=== PATIENT | male | born 1965 | race Caucasian/White ===

== ENCOUNTER 2020-03-28 17:15 | Inpatient (IN) | payer OTHER, SELFPAY ==
[2020-03-28] VITALS (14 sets, daily range): BP systolic 129–152; BP diastolic 86–100; PULSE 109–132; RESP 13–30; TEMP 36.1–36.9; O2SAT 93–97; BMI 30.5
--- NOTE | 2020-03-28 17:34 | ED_ITS ---
HPI - SOB/Dyspnea General Chief Complaint: Shortness of Breath/Dyspnea Stated Complaint: states Covid +, not getting better Time Seen by Provider: 03/28/20 17:22 Source: patient Mode of arrival: Ambulatory Limitations: no limitations History of Present Illness HPI Narrative: 54-year-old male former smoker with a history of hypertension and high cholesterol presents with worsening symptoms and the setting of a known positive COVID swab. Patient started getting sick about a week ago and had an evaluation at the [facility] on Thursday. He had a COVID swab which was positive and he has been at home and self quarantine ever since. He has increasing work of breathing and has been watering his pulse ox at home and noted to be 92-93%. Minimal exertion makes him extremely short of breath. He is admittedly a bit confused and fatigued. He denies any hemoptysis. He has had a dry hacking cough and feels fatigued. He denies runny nose but has had some nasal congestion and mild sore throat. He feels a bit achy and generally unwell. He denies nausea, vomiting or diarrhea. MD Complaint: shortness of breath and cough Onset (ago): day(s) Context: recent illness Severity: moderate Consistency/Duration: constant Relieving factors: rest Exacerbating factors: exertion Associated symptoms: fever and cough Related Data Home oxygen amount: none Home Medications Medication Instructions Recorded Confirmed lisinopril 10 mg PO DAILY 03/28/20 03/28/20 rizatriptan 10 mg PO PRN PRN 03/28/20 03/28/20 tamsulosin [Flomax] 0.4 mg PO BEDTIME 03/28/20 03/28/20 atorvastatin [Lipitor] 20 mg PO DAILY 03/29/20 03/29/20 metoprolol tartrate 25 mg PO DAILY 03/29/20 03/29/20 Allergies Allergy/AdvReac Type Severity Reaction Status Date / Time ibuprofen Allergy Rash Verified 03/28/20 17:23 Review of Systems Constitutional Constitutional: Denies chills, Reports fatigue, Reports fever(s), Denies frequent falls, Denies lethargy and Reports weakness Eyes Eyes: Denies change in vision, Denies eye discharge, Denies irritation and Denies loss of vision ENT Ears, Nose, Mouth, and Throat: Denies change in voice, Denies dizziness, Denies neck pain, Denies sore throat and Denies throat swelling Cardiovascular Cardiovascular: Denies chest pain, Denies irregular heart rhythm, Denies lightheadedness, Reports palpitations, Reports dyspnea, Reports dyspnea on exertion and Denies orthopnea Respiratory Respiratory: Reports cough, Reports dyspnea, Reports dyspnea on exertion and Denies wheezing Gastrointestinal Gastrointestinal: Denies abdominal pain, Denies change in bowel habits, Denies diarrhea, Denies nausea and Denies vomiting Musculoskeletal Musculoskeletal: Denies neck pain and Denies numbness Integumentary/Breasts Skin/Breast: Denies pruritus, Denies erythema, Denies rash and Denies wounds Neurologic Neurologic: Denies behavioral changes, Denies confusion, Denies dizziness, Denies frequent falls, Denies loss of vision, Denies numbness and Reports weakness Psychiatric Psychiatric: Denies anxiety, Denies behavioral changes, Denies confusion, Denies depression, Denies homicidal ideation and Denies suicidal ideation Endocrine Endocrine: Reports fatigue, Denies flushing and Reports palpitations Hematologic/Lymphatic Hematologic/Lymphatic: Denies easy bruising Allergic/Immunologic Allergic/Immunologic: Denies urticaria, Denies throat swelling and Denies wheezing Patient History Medical History (Updated 03/28/20 @ 18:38 by Agusto Connors DO) BPH (benign prostatic hyperplasia) (Acute) High cholesterol (Acute) Hypertension (Acute) Surgical History (Updated 03/28/20 @ 21:05 by Kevin Leong MD) H/O lithotripsy (Acute) H/O umbilical hernia repair (Acute) Family History (Updated 03/28/20 @ 21:07 by Kevin Leong MD) Mother Lung disease Father CVA (cerebral vascular accident) Son COVID-19 Social History household members: spouse Smoking Status: Former smoker Smoking Status: Former smoker alcohol intake frequency: 0-2 drinks per day Substance Use Type: former substance user Exam Narrative Exam Narrative: GENERAL: [54] year old patient appears stated age. Well- nourished, well-developed patient, in moderate distress, mildly diaphoretic, subtle confusion, obvious increased work of breathing. HEAD: Atraumatic. Normocephalic. EYES: Pupils equal round and reactive. Extraocular motions intact. No scleral icterus. No injection or drainage. ENT: Nose without bleeding, purulent drainage. Throat without erythema, tonsillar hypertrophy or exudate. Airway patent. NECK: Trachea midline. Non tender CARDIOVASCULAR: Tachycardic irregular rhythm without murmurs, gallops, or rubs. RESPIRATORY: Faint crackles in bilateral bases, rapid, shallow breathing GASTROINTESTINAL: Abdomen soft, non-tender, nondistended. EXTREMITIES: No edema or joint tenderness. BACK: Nontender without deformity or crepitance. No flank tenderness. NEURO: AOx3. SKIN: No rash or erythema of visible areas Initial Vital Signs Initial Vital Signs: Vital Signs Temperature 96.9 F L 03/28/20 17:21 Pulse Rate 132 H 03/28/20 17:21 Respiratory Rate 24 03/28/20 17:21 Blood Pressure 132/100 H 03/28/20 17:21 Pulse Oximetry 96 03/28/20 17:21 Scores GCS La coma scale eye opening: Spontaneous [place] coma scale verbal response: Confused [place] coma scale motor response: Obey commands [place] coma scale total score: 14 Course Orders Ordered: Discontinued Medications Acetaminophen (Tylenol) 650 mg PO Q4HR PRN PRN Reason: Fever/Mild Pain (1-3) Last Admin: 03/29/20 00:46 Dose: 650 mg Documented by: LARY Amlodipine Besylate (Norvasc) 5 mg PO DAILY [facility] Last Admin: 03/29/20 09:53 Dose: 5 mg Documented by: BO Atorvastatin Calcium (Lipitor) 10 mg PO BEDTIME [facility] Last Admin: 03/28/20 22:41 Dose: Not Given Documented by: MINDA Atorvastatin Calcium (Lipitor) 20 mg PO DAILY [facility] Last Admin: 03/30/20 09:26 Dose: 20 mg Documented by: BO Benzonatate (Tessalon Perles) 100 mg PO TID PRN PRN Reason: Cough Dexamethasone (Decadron) 6 mg IV NOW ONE Stop: 03/28/20 17:54 Last Admin: 03/28/20 18:14 Dose: 6 mg Documented by: NUNU Dexamethasone (Decadron) 6 mg PO DAILY [facility] Last Admin: 03/30/20 09:25 Dose: 6 mg Documented by: Admin: 03/29/20 09:53 Dose: 6 mg Documented by: BO Dextrose ([email or web address]) 25 gm IV PRN PRN; Protocol PRN Reason: Hypoglycemia Enoxaparin Sodium (Lovenox) 40 mg SUBCUT NOW ONE Stop: 03/28/20 18:53 Last Admin: 03/28/20 19:18 Dose: 40 mg Documented by: NUNU Enoxaparin Sodium (Lovenox) 40 mg SUBCUT DAILY [facility] Last Admin: 03/30/20 09:26 Dose: 40 mg Documented by: Admin: 03/29/20 13:59 Dose: 40 mg Documented by: BO Guaifenesin/Codeine Phosphate (Guaifenesin/Codeine Liquid) 10 ml PO Q6H PRN PRN Reason: Cough Sodium Chloride (Normal Saline 0.9%) 1,000 mls @ 125 mls/hr IV CONT [facility] Last Infusion: 03/29/20 09:42 Dose: 0 mls/hr Documented by: Admin: 03/29/20 00:47 Dose: 125 mls/hr Documented by: Infusion: 03/29/20 00:47 Dose: 125 mls/hr Documented by: Infusion: 03/28/20 19:56 Dose: 125 mls/hr Documented by: Admin: 03/28/20 17:40 Dose: 125 mls/hr Documented by: KAYLEE Azithromycin 500 mg/ Dextrose 250 mls @ 250 mls/hr IV NOW ONE Stop: 03/28/20 17:53 Last Infusion: 03/28/20 19:18 Dose: 0 mls/hr Documented by: Admin: 03/28/20 18:13 Dose: 250 mls/hr Documented by: NUNU Remdesivir 200 mg/ Sodium (Chloride) 250 mls @ 250 mls/hr IV NOW ONE Stop: 03/28/20 18:53 Last Infusion: 03/28/20 20:20 Dose: 0 mls/hr Documented by: Infusion: 03/28/20 19:56 Dose: 250 mls/hr Documented by: Admin: 03/28/20 19:18 Dose: 250 mls/hr Documented by: NUNU Remdesivir 100 mg/ Sodium (Chloride) 250 mls @ 250 mls/hr IV DAILY [facility] Stop: 04/02/20 09:01 Last Admin: 03/30/20 09:25 Dose: 250 mls/hr Documented by: Infusion: 03/29/20 14:48 Dose: 0 mls/hr Documented by: Admin: 03/29/20 09:53 Dose: 250 mls/hr Documented by: BO Insulin Aspart (Novolog Flexpen) 0 unit SUBCUT ACHS [facility]; Protocol Last Admin: 03/30/20 08:33 Dose: Not Given Documented by: Admin: 03/29/20 21:10 Dose: Not Given Documented by: Admin: 03/29/20 17:40 Dose: Not Given Documented by: MINDA Lisinopril (Zestril) 10 mg PO DAILY [facility] Last Admin: 03/30/20 08:46 Dose: Not Given Documented by: BO Lisinopril (Zestril) 10 mg PO NOW ONE Stop: 03/30/20 00:12 Last Admin: 03/30/20 00:45 Dose: 10 mg Documented by: MARTÍN Metoprolol Succinate (Toprol Xl) 25 mg PO DAILY [facility] Last Admin: 03/30/20 08:46 Dose: Not Given Documented by: BO Metoprolol Succinate (Toprol Xl) 25 mg PO NOW ONE Stop: 03/30/20 00:11 Last Admin: 03/30/20 00:44 Dose: 25 mg Documented by: MARTÍN Rizatriptan 10 Mg 10 mg PO PRN PRN PRN Reason: Migraine Headache Tamsulosin HCl (Flomax) 0.4 mg PO DAILY [facility] Last Admin: 03/29/20 09:53 Dose: 0.4 mg Documented by: BO Tamsulosin HCl (Flomax) 0.4 mg PO BEDTIME [facility] Tamsulosin HCl (Flomax) 0.4 mg PO BEDTIME [facility] Last Admin: 03/29/20 21:32 Dose: 0.4 mg Documented by: MINDA Reevaluation(s) Reevaluation #1: patient feels better with supplemental O2, staying in mid to upper 90s. HR down to 110s. Consultations Consultation #1: Hospitalist called Time: 18:39 Vital Signs Vital signs: Vital Signs - 8 hr 03/28/20 17:21 03/28/20 17:45 03/28/20 18:00 Temperature 96.9 F L Pulse Rate 132 H 126 H 126 H Respiratory Rate 24 Blood Pressure 132/100 H 144/98 H 148/95 H Pulse Oximetry 96 95 94 03/28/20 18:15 03/28/20 18:30 03/28/20 18:31 Temperature Pulse Rate 121 H 120 H 120 H Respiratory Rate 24 30 H 24 Blood Pressure 149/86 H 152/96 H Pulse Oximetry 93 96 97 MDM - SOB/Dyspnea Lab Data Result diagrams: 03/30/20 04:35 03/30/20 04:35 Labs: Lab Results 03/28/20 03/28/20 03/28/20 Range/Units 16:25 16:25 16:25 WBC 3.9 L (4.5-11.0) X10^3/uL RBC 5.93 H (4.5-5.9) X10^6/uL Hgb 17.6 H (13.5-17.5) g/dL Hct 51.3 (41-53) % MCV 86.5 (80-100) fL MCH 29.6 (26-34) PG MCHC 34.2 (30-36) % RDW 13.6 (11.6-14.8) % Plt Count 104 L (150-400) X10^3/uL Neut % (Auto) 63.8 (50-75) % Lymph % (Auto) 23.1 L (25-40) % [place] % (Auto) 12.6 (3-14) % Eos % (Auto) 0.1 L (2-4) % Baso % (Auto) 0.4 (0-2) % Neut # (Auto) 2500 (5155-5548) /uL Lymph # (Auto) 900 L (5454-7606) /uL [place] # (Auto) 500 (0-900) /uL Eos # (Auto) 0 (0-450) /uL Baso # (Auto) 0 (0-100) /uL Platelet Estimate Decreased on smear Plt Morphology Comment 1+ large platelets RBC Morphology Normal morphology D-Dimer 269 H (<230) ng/mL Sodium (137-145) mmol/L Potassium (3.4-5.1) mmol/L Chloride (98-107) mmol/L Carbon Dioxide (22-32) mmol/L BUN (9-20) mg/dL Creatinine (0.66-1.25) mg/dL Estimated GFR (>60) mL/min BUN/Creatinine Ratio (6-22) Glucose (70-100) mg/dL Lactate (0.7-2.1) mmol/L Calcium (8.4-10.2) mg/dL Ferritin (18-464) ng/mL Total Bilirubin (0.2-1.3) mg/dL AST (17-59) IU/L ALT (<50) IU/L Alkaline Phosphatase (38-126) U/L Lactate Dehydrogenase (313-618) U/L Total Creatine Kinase (55-170) U/L CK-MB (CK-2) CK-MB (CK-2) Rel Index Troponin I (0.01-0.034) ng/mL C-Reactive Protein (<1.0) mg/dL NT-Pro-B Natriuret Pep (<125) pg/mL Total Protein (6.3-8.2) g/dL Albumin (3.5-5.0) g/dL Globulin (1.7-4.1) g/dL Albumin/Globulin Ratio (1.0-2.8) Procalcitonin < 0.05 (<0.5) ng/mL 03/28/20 03/28/20 Range/Units 16:25 16:25 WBC (4.5-11.0) X10^3/uL RBC (4.5-5.9) X10^6/uL Hgb (13.5-17.5) g/dL Hct (41-53) % MCV (80-100) fL MCH (26-34) PG MCHC (30-36) % RDW (11.6-14.8) % Plt Count (150-400) X10^3/uL Neut % (Auto) (50-75) % Lymph % (Auto) (25-40) % [place] % (Auto) (3-14) % Eos % (Auto) (2-4) % Baso % (Auto) (0-2) % Neut # (Auto) (1057-0764) /uL Lymph # (Auto) (8555-7050) /uL [place] # (Auto) (0-900) /uL Eos # (Auto) (0-450) /uL Baso # (Auto) (0-100) /uL Platelet Estimate Plt Morphology Comment RBC Morphology D-Dimer (<230) ng/mL Sodium 133 L (137-145) mmol/L Potassium 4.5 (3.4-5.1) mmol/L Chloride 102 (98-107) mmol/L Carbon Dioxide 21 L (22-32) mmol/L BUN 20 (9-20) mg/dL Creatinine 1.03 (0.66-1.25) mg/dL Estimated GFR > 60.0 (>60) mL/min BUN/Creatinine Ratio 19.4 (6-22) Glucose 142 H (70-100) mg/dL Lactate 1.3 (0.7-2.1) mmol/L Calcium 8.8 (8.4-10.2) mg/dL Ferritin 469 H (18-464) ng/mL Total Bilirubin 0.7 (0.2-1.3) mg/dL AST 36 (17-59) IU/L ALT 36 (<50) IU/L Alkaline Phosphatase 86 (38-126) U/L Lactate Dehydrogenase 618 (313-618) U/L Total Creatine Kinase 69 (55-170) U/L CK-MB (CK-2) TNP CK-MB (CK-2) Rel Index TNP Troponin I < 0.012 (0.01-0.034) ng/mL C-Reactive Protein 3.2 H (<1.0) mg/dL NT-Pro-B Natriuret Pep 21 (<125) pg/mL Total Protein 7.5 (6.3-8.2) g/dL Albumin 4.3 (3.5-5.0) g/dL Globulin 3.2 (1.7-4.1) g/dL Albumin/Globulin Ratio 1.3 (1.0-2.8) Procalcitonin (<0.5) ng/mL MDM Narrative Medical decision making narrative: Patient with resting SpO2 dipping into the low 90s, minimal exertion causes significant SOB and work of breathing. Patient put on 2L of O2, very likely admit given progression of illness, abnormal vitals. Per RECOVERY trial and NIH recommendations Dexamethasone 6mg IV ordered. Discharge Plan Departure Patient Disposition: Admitted As Inpatient Clinical Impression: COVID-19 Discharge Date/Time: 03/28/20 20:21 Instructions: DI for COVID-19 (Suspected or Confirmed ), Coronavirus Disease 2019 Admit Date/Time: 03/28/20 18:54 Admit Provider: Nara Lehman
--- NOTE | 2020-03-28 17:35 | DI.RAD.S_ITS ---
PROCEDURE: XR CHEST 1V INDICATIONS: worsening shortness of breath, known COVID+ TECHNIQUE: One view of the chest was acquired. COMPARISON: None. FINDINGS: Surgical changes and devices: None. Lungs and pleura: Bilateral patchy interstitial type infiltrates are seen. No pleural effusions or pneumothorax. Mediastinum: The cardiac contours are within normal limits. The aorta demonstrates calcification and tortuosity. Bones and chest wall: No suspicious bony lesions. Age-appropriate bony degenerative changes are seen. Overlying soft tissues appear unremarkable. IMPRESSION: Bilateral patchy interstitial type infiltrates are seen, which are consistent with the given clinical history of coping the moaning. Dictated by: Mathew Greco M.D. on 03/28/2020 at 17:32 Approved by: Mathew Greco M.D. on 03/28/2020 at 17:32
[2020-03-28] MEDS: SODIUM CHLORIDE 0.9% 1,000 ML 125 ML IV (17:40)
[2020-03-28 18:03] LABS: Basophils Absolute Auto 0 /uL (0-100); Basophils Percent Auto 0.4 % (0-2); Eosinophils Absolute Auto 0 /uL (0-450); Eosinophils Percent Auto 0.1 % (2-4); Hematocrit 51.3 % (41-53); Hemoglobin 17.6 g/dL (13.5-17.5); Lymphocytes Absolute Auto 900 /uL (1100-4500); Lymphocytes Percent Auto 23.1 % (25-40); Mean Corpuscular HGB Conc 34.2 % (30-36); Mean Corpuscular Hemoglobin 29.6 PG (26-34); Mean Corpuscular Volume 86.5 fL (80-100); Monocytes Absolute Auto 500 /uL (0-900); Monocytes Percent Auto 12.6 % (3-14); Neutrophils Absolute Auto 2500 /uL (1500-7000); Neutrophils Percent Auto 63.8 % (50-75); Red Blood Cell Count 5.93 X10^6/uL (4.5-5.9); Red Cell Distribution Width 13.6 % (11.6-14.8); White Blood Cell Count 3.9 X10^3/uL (4.5-11.0)
[2020-03-28 18:08] LABS: D Dimer 269 ng/mL (<230)
[2020-03-28 18:09] LABS: Lactate (Lactic Acid) 1.3 mmol/L (0.7-2.1)
[2020-03-28 18:11] LABS: Alanine Aminotransferase 36 IU/L (<50); Albumin 4.3 g/dL (3.5-5.0); Albumin Globulin Ratio 1.3 (1.0-2.8); Alkaline Phosphatase 86 U/L (38-126); Aspartate Aminotransferase 36 IU/L (17-59); BUN Creatinine Ratio 19.4 (6-22); Bilirubin Total 0.7 mg/dL (0.2-1.3); Blood Urea Nitrogen 20 mg/dL (9-20); C-Reactive Protein Quant 3.2 mg/dL (<1.0); Calcium 8.8 mg/dL (8.4-10.2); Carbon Dioxide 21 mmol/L (22-32); Chloride 102 mmol/L (98-107); Creatine Kinase 69 U/L (55-170); Estimated Glomerular Filt Rate > 60.0 mL/min (>60); Globulin 3.2 g/dL (1.7-4.1); Glucose 142 mg/dL (70-100); HEMOLYSIS 16 (0-50); Lactate Dehydrogenase 618 U/L (313-618); Potassium 4.5 mmol/L (3.4-5.1); Sodium 133 mmol/L (137-145); Total Protein 7.5 g/dL (6.3-8.2)
[2020-03-28] MEDS: AZITHROMYCIN 500 MG in DEXTROSE 5% IN WATER 250 ML IV (18:13)
[2020-03-28] MEDS: DEXAMETHASONE 10 MG/ML VIAL 6 MG IV (18:14)
[2020-03-28 18:16] LABS: Add Manual Diff / Slide Review SLIDE REVIEW; Platelet Count 104 X10^3/uL (150-400)
[2020-03-28 18:17] LABS: Platelet Estimate Decreased on smear; Platelet Morphology Comment 1+ LARGE PLATELETS; RBC Morphology Normal Morphology
[2020-03-28 18:21] LABS: NT-proBNP (BNP-Adult 18+) 21 pg/mL (<125); Troponin I < 0.012 ng/mL (0.01-0.034)
--- NOTE | 2020-03-28 18:29 | PC.NURSE ---
Pt 93% and placed on 2L O2 NC per MD order with improvement to 97%
--- NOTE | 2020-03-28 18:32 | PC.NURSE ---
+COVID after attending a birthday libertarian about 10-12 days ago. Reports cough, nonproductive, Reports dyspnea, Reports dyspnea on exertion and Denies wheezing. 93% RA. states SPO2 monitor at home reading 88%. placed on 2L NC with improvement to 97%. Lungs clear anteriorly. diaphoretic. afebrile. AAOx3. HR 120 consistently BP 152/96.
[2020-03-28 18:35] LABS: Procalcitonin < 0.05 ng/mL (<0.5)
[2020-03-28 18:44] LABS: Ferritin 469 ng/mL (18-464)
[2020-03-28] MEDS: REMDESIVIR 200 MG in SODIUM CHLORIDE 0.9% 210 ML 250 ML IV (19:18)
[2020-03-28] MEDS: ENOXAPARIN 40 MG/0.4 ML SYRINGE SUBCUT (19:18)
--- NOTE | 2020-03-28 20:51 | PC.NURSE ---
Pt arrived via gurney, A/Ox3, ambulated to bed with no difficulty. Currently on 2lNC, with NS infusing at 125mL/hr and Desivir infusing @250 mL/hr per order. Connected to monitoring equipment, oriented to room and call light system, admission assessment completed, orders reviewed. Bed low and locked, call light within reach, will continue to monitor.
--- NOTE | 2020-03-28 21:00 | P.HP_ITS ---
History of Present Illness History of Present Illness Date Patient Seen: 03/28/20 Time Patient Seen: 21:00 Chief complaint: states Covid +, not getting better Narrative: This is a 54-year-old male who was diagnosed with a COVID respiratory infection 10 days ago. His test was done in [place], he lives in [place], but is currently staying in an RV at the [facility], quarantining with his . He suspects that his son was the 1st person in the family to get the COVID. Over the last 24 hours he has become increasingly short of breath and when he presented to the emergency department he was 91% on room air. With application of 2 L nasal cannula he felt much better with his tachypnea dropping from the 30s into the 20s and his O2 sat rising into the mid 90s to high 90s. He has received an initial dose of remdesivir and dexamethasone in the emergency department, with further doses depending on his progress. During my visit he is coughing intermittently. He is not febrile. His chest x-ray shows the classic bilateral patchy interstitial type infiltrates of coronavirus. His white blood count is 3.9 with a hemoglobin of 17.6, LDH of 618, COPD a 33.2, D-dimer 269, platelets of 104, glucose 142 and ferritin of 469. Patient History Medical History (Updated 03/28/20 @ 18:38 by Agusto Connors DO) BPH (benign prostatic hyperplasia) (Acute) High cholesterol (Acute) Hypertension (Acute) Surgical History (Updated 03/28/20 @ 21:05 by Kevin Leong MD) H/O lithotripsy (Acute) H/O umbilical hernia repair (Acute) Family & Social History Family History (Updated 03/28/20 @ 21:07 by Kevin Leong MD) Mother Lung disease Father CVA (cerebral vascular accident) Son COVID-19 Social History: household members spouse Prior Living Arrangements RV Safety & Behavioral: Feels Safe in Current Yes Environment Been Physically Hurt or No Threatened By a Person Suicidal Ideation Description None Suicide Plan Description No Plan Tobacco & Substance use: Smoking Status Former smoker alcohol intake frequency 0-2 drinks per day Substance Use Type former substance user Comment: His backup decision maker is his Maryjane Kruse. His primary care physician is Dr. Indira Hayden. Meds Home Medications and Allergies Home Medications Medication Instructions Recorded Confirmed Type lisinopril 10 mg PO DAILY 03/28/20 03/28/20 History rizatriptan 10 mg PO PRN PRN 03/28/20 03/28/20 History tamsulosin [Flomax] 0.4 mg PO BEDTIME 03/28/20 03/28/20 History Allergies Allergy/AdvReac Type Severity Reaction Status Date / Time ibuprofen Allergy Rash Verified 03/28/20 17:23 Review of Systems Review of Systems Narrative: Positive for shortness of breath, coughing, muscle aches. Negative for chest pain, fevers, chills, sweats, headaches, abdominal pain, nausea, vomiting, bleeding, rash, diarrhea, joint pain, seizures, headaches, new allergies, difficulty swallowing. ROS: Yes All systems reviewed with the patient and are negative except as otherwise documented Exam Vital Signs (past 8 hours): - 03/28/20 17:21 03/28/20 17:45 03/28/20 18:00 Temperature 96.9 F L Pulse Rate 132 H 126 H 126 H Respiratory Rate 24 Blood Pressure 132/100 H 144/98 H 148/95 H Pulse Oximetry 96 95 94 03/28/20 18:15 03/28/20 18:30 03/28/20 18:31 Temperature Pulse Rate 121 H 120 H 120 H Respiratory Rate 24 30 H 24 Blood Pressure 149/86 H 152/96 H Pulse Oximetry 93 96 97 03/28/20 18:45 03/28/20 18:46 03/28/20 19:00 Temperature Pulse Rate 121 H 119 H 114 H Respiratory Rate 23 Blood Pressure 129/86 129/89 Pulse Oximetry 95 97 96 03/28/20 19:15 03/28/20 19:30 03/28/20 19:31 Temperature Pulse Rate 111 H 110 H 111 H Respiratory Rate 28 H 17 25 H Blood Pressure 133/91 H 147/98 H Pulse Oximetry 96 96 97 03/28/20 19:45 03/28/20 20:00 Temperature 98.5 F Pulse Rate 109 H 109 H Respiratory Rate 22 13 Blood Pressure 141/93 H 149/93 H Pulse Oximetry 96 96 Oxygen Delivery Method Room Air Narrative Exam Narrative: He is alert and oriented x3. At the moment he is not in any respiratory distress, calmly breathing his nasal cannula oxygen and occasionally coughing, only when provoked by deep breathing. Pupils are equally round and reactive to light and accommodation. Extraocular muscles are intact. Sclerae are pink and nonicteric Throat looks normal No lymph nodes are felt head, neck, supraclavicular area There is no thyromegaly JVD is less than 6 cm No carotid bruits are heard Heart is regular rate and rhythm without murmur Lungs coarse crackling bilaterally Abdomen is soft, bowel sounds positive, nontender, no organomegaly. Extremities have no ankle edema. Neurological exam. Cranial nerves 2-12 test intact. There is no tremor. Gait and balance are not tested. Skin has no rash or jaundice. Objective Labs Result Diagrams: 03/28/20 16:25 03/28/20 16:25 Labs: Laboratory Results - last 24 hr 03/28/20 03/28/20 03/28/20 16:25 16:25 16:25 WBC 3.9 L RBC 5.93 H Hgb 17.6 H Hct 51.3 MCV 86.5 MCH 29.6 MCHC 34.2 RDW 13.6 Plt Count 104 L Neut % (Auto) 63.8 Lymph % (Auto) 23.1 L [place] % (Auto) 12.6 Eos % (Auto) 0.1 L Baso % (Auto) 0.4 Neut # (Auto) 2500 Lymph # (Auto) 900 L [place] # (Auto) 500 Eos # (Auto) 0 Baso # (Auto) 0 Platelet Estimate Decreased on smear Plt Morphology Comment 1+ large platelets RBC Morphology Normal morphology D-Dimer 269 H Sodium Potassium Chloride Carbon Dioxide BUN Creatinine Estimated GFR BUN/Creatinine Ratio Glucose Lactate Calcium Ferritin Total Bilirubin AST ALT Alkaline Phosphatase Lactate Dehydrogenase Total Creatine Kinase CK-MB (CK-2) CK-MB (CK-2) Rel Index Troponin I C-Reactive Protein NT-Pro-B Natriuret Pep Total Protein Albumin Globulin Albumin/Globulin Ratio Procalcitonin < 0.05 03/28/20 03/28/20 16:25 16:25 WBC RBC Hgb Hct MCV MCH MCHC RDW Plt Count Neut % (Auto) Lymph % (Auto) [place] % (Auto) Eos % (Auto) Baso % (Auto) Neut # (Auto) Lymph # (Auto) [place] # (Auto) Eos # (Auto) Baso # (Auto) Platelet Estimate Plt Morphology Comment RBC Morphology D-Dimer Sodium 133 L Potassium 4.5 Chloride 102 Carbon Dioxide 21 L BUN 20 Creatinine 1.03 Estimated GFR > 60.0 BUN/Creatinine Ratio 19.4 Glucose 142 H Lactate 1.3 Calcium 8.8 Ferritin 469 H Total Bilirubin 0.7 AST 36 ALT 36 Alkaline Phosphatase 86 Lactate Dehydrogenase 618 Total Creatine Kinase 69 CK-MB (CK-2) TNP CK-MB (CK-2) Rel Index TNP Troponin I < 0.012 C-Reactive Protein 3.2 H NT-Pro-B Natriuret Pep 21 Total Protein 7.5 Albumin 4.3 Globulin 3.2 Albumin/Globulin Ratio 1.3 Procalcitonin Assessment & Plan Assessment & Plan narrative: COVID - 19 -CXR infiltrates, tachypnea, mild hypoxia are c/w known +COVID status -WBC 3.9, Platelets 104, Repeat on 03/29 -Initial doses of Remdesivir and Dexamethasone given in the ED based on decision to place on supplemental oxygen for work of breathing/hyperventilation. -Further doses to be determined on 03/29. He does not technically qualify under NIH guidelines due to presenting room air saturation of 91%. If decision made to continue treatment the current recommendation is remdesivir 100 mg daily for 4 more days or until hospital discharge, whichever comes 1st and dexamethasone 6 mg IV or p.o. for up to 10 days or until hospital discharge, whichever comes 1st. -He feels much better with oxygen by NC, higher O2 sats and the Dexamethasone ef fect. Hyperglycemia -Blood Glucose of 142 on admission -Now on Dexamethasone -Repeat BMP on 03/29 Hypertension, present on admission. Chronic -Holding Lisinopril BPH, present on admission. Chronic -Continue Flomax Hyperlipidemia, present on admission. Chronic -Continue statin therapy. Begin with Atorvastatin. -He does not remember which statin he takes. COVID-19 COVID-19 status: Positive Result date/Date tested (Pos, Neg/Pending): 03/18/20
[2020-03-28 21:02] LABS: Adenovirus Not Detected (Not Detect); Bordetella pertussis Not Detected (Not Detect); Chlamydophila pneumoniae Not Detected (Not Detect); Coronavirus 229E Not Detected (Not Detect); Coronavirus HKU1 Not Detected (Not Detect); Coronavirus NL 63 Not Detected (Not Detect); Coronavirus OC43 Not Detected (Not Detect); Human Metapneumovirus Not Detected (Not Detect); Human Rhinovirus/Enterovirus Not Detected (Not Detect); Influenza A Not Detected (Not Detect); Influenza B Not Detected (Not Detect); Mycoplasma pneumoniae Not Detected (Not Detect); Parainfluenza Virus 1 Not Detected (Not Detect); Parainfluenza Virus 2 Not Detected (Not Detect); Parainfluenza Virus 3 Not Detected (Not Detect); Parainfluenza Virus 4 Not Detected (Not Detect); Respiratory Syncytial Virus Not Detected (Not Detect)
[2020-03-29] MEDS: ACETAMINOPHEN 325 MG TABLET 650 MG PO (00:46)
[2020-03-29] MEDS: SODIUM CHLORIDE 0.9% 1,000 ML 125 ML IV (00:47)
[2020-03-29 01:00] VITALS: BP 148/103; PULSE 102; RESP 22; TEMP 37.2; O2SAT 96
[2020-03-29 04:58] LABS: Add Manual Diff / Slide Review NO; Basophils Absolute Auto 0 /uL (0-100); Basophils Percent Auto 0.3 % (0-2); Eosinophils Absolute Auto 0 /uL (0-450); Hematocrit 48.1 % (41-53); Lymphocytes Absolute Auto 600 /uL (1100-4500); Lymphocytes Percent Auto 30.7 % (25-40); Mean Corpuscular HGB Conc 33.2 % (30-36); Mean Corpuscular Volume 87.2 fL (80-100); Monocytes Absolute Auto 200 /uL (0-900); Monocytes Percent Auto 10.5 % (3-14); Neutrophils Absolute Auto 1200 /uL (1500-7000); Neutrophils Percent Auto 58.5 % (50-75); Platelet Count 98 X10^3/uL (150-400); Red Blood Cell Count 5.51 X10^6/uL (4.5-5.9); Red Cell Distribution Width 13.5 % (11.6-14.8)
[2020-03-29 05:20] LABS: BUN Creatinine Ratio 20.6 (6-22); Blood Urea Nitrogen 20 mg/dL (9-20); Carbon Dioxide 27 mmol/L (22-32); Chloride 104 mmol/L (98-107); Estimated Glomerular Filt Rate > 60.0 mL/min (>60); Glucose 190 mg/dL (70-100); HEMOLYSIS 19 (0-50); Sodium 137 mmol/L (137-145)
[2020-03-29 06:02] VITALS: BP 141/94; PULSE 75; RESP 20; TEMP 36.7; O2SAT 94
--- NOTE | 2020-03-29 06:33 | PC.NURSE ---
Gag Writer Note-Patient is A/Ox4, independent in room with minimal shortness of breath, SpO2 92-96%, wears 2L NC while in bed, RR 20s, LS diminished with underlying coarseness, intermittent dry cough. T-max 99.0 at 0100, Tylenol given for headache, Temp 98.0 in am. No diarrhea reported overnight. Remains in Airborne/Contact Isolation.
[2020-03-29 08:00] VITALS: BP 146/97; PULSE 91; RESP 20; TEMP 36.7; O2SAT 96
[2020-03-29] MEDS: AMLODIPINE 5 MG TABLET PO (09:53)
[2020-03-29] MEDS: REMDESIVIR 100 MG in SODIUM CHLORIDE 0.9% 230 ML 250 ML IV (09:53)
[2020-03-29] MEDS: dexAMETHasone 1 MG TABLET 6 MG PO (09:53)
[2020-03-29] MEDS: TAMSULOSIN 0.4 MG CAPSULE PO ×2 (09:53→21:32)
--- NOTE | 2020-03-29 10:29 | CM.IDA ---
Initial DCP Assessment Note Patient is a 54 yo male, resident of [place]. Patient presents w/worsening symptoms related to COVID-19 PCP: Loly escudero, PCP not listed Payer: Robert ANDREW Reviewed chart. This CASEWORKER INTAKE will remain out of patient's room today, can place call as needed if DC needs or concerns arise. According to Dr Lehman, full resp panel pending. Patient is expected to recover here and DC back to RV w/spouse. Patient is indp and active at baseline and expected to not have any needs from this CASEWORKER INTAKE Will follow closely in case DC needs or concerns arise. SELENA Discharge Planning/Care Management CM Discharge Assessment Start: 03/29/20 10:26 Freq: Status: Active Protocol: Document 03/29/20 10:26 SELENA (Rec: 03/29/20 10:29 SELENA [id number]) Discharge Planning Assessment Assigned Linseed Cake Trimmer DESI Philippe DPOA/Assigned Designee Name Maryjane Kruse, spouse Contact Information [phone] Advance Directives? No History Provided By Medical Record Prior Living Arrangements RV Household Members spouse Type of transporation used prior to Drives own vehicle admit Independent with ADL's Yes Is patient alert and oriented? Yes Barriers to Discharge No Discharge Plan Home Transportation Arrangement Spouse/family Referrals Initiated None needed Review Status In Process
--- NOTE | 2020-03-29 10:34 | PM.PN.1 ---
Subjective Subjective Date Patient Seen: 03/29/20 Interval history: Angel Banerjee is a 54-year-old male former smoker with a past medical history significant for hypertension, hyperlipidemia, BPH and migraine headaches requiring Botox for prevention who presented with worsening shortness of breath in the setting of a known positive COVID swab. The patient is resting in bed and appears comfortable. He reports he feels significantly better than yesterday. He reports and his malaise, shortness of breath, and dry nonproductive cough feel improved. He also endorses hot and cold flashes, diarrhea and intermittent headache. He has intermittent cough paroxysms. He denies ear pain, rhinitis, sore throat, chest pain, abdominal pain, nausea, vomiting, fever, chills, or dysuria. Discussed care plan in detail amnd answered all his questions. He is voiding and eliminating without difficulty. He is up ambulating without assistance. Exam Vital Signs (past 8 hours): - 03/29/20 06:02 03/29/20 08:00 Temperature 98.0 F 98.1 F Pulse Rate 75 91 H Respiratory Rate 20 20 Blood Pressure 141/94 H 146/97 H Pulse Oximetry 94 96 Oxygen Delivery Method Nasal Cannula Oxygen Flow Rate 2 Narrative Exam Narrative: General: Middle aged male sitting in bed and in no acute distress, appears acutely ill, well-developed, well-nourished, appropriately interactive. HEENT: Normocephalic, atraumatic. External ears without defect. Pupils equal, round, and reactive to light. Anicteric sclerae, moist conjunctivae, and no lid lag. Oropharynx free of erythema and cobble stoning with moist mucosa. Neck: Supple with full range of motion. No jugular venous distension. No lymphadenopathy or thyromegaly. Cardiovascular: Regular rhythm, mild tachycardia without murmurs, rubs, or gallops appreciated. Pulmonary: Diminished throughout but clear to auscultation bilaterally without crackles, wheezes, or rhonchi. Normal respiratory effort with no use of accessory muscles. Abdomen: Soft, bowel sounds present, nontender, nondistended. No hepatosplenomegaly or masses appreciated. Extremities: No clubbing, cyanosis, or edema. Skin: Normal temperature, turgor, and texture; no rash, ulcers, or subcutaneous nodules appreciated. Neurological: Cranial nerves grossly intact. Psychiatric: Normal mood and affect. Alert and oriented to person, place, and time. Objective Labs Result Diagrams: 03/30/20 04:35 03/30/20 04:35 Labs: Laboratory Results - last 24 hr 03/28/20 03/28/20 03/28/20 16:25 16:25 16:25 WBC 3.9 L RBC 5.93 H Hgb 17.6 H Hct 51.3 MCV 86.5 MCH 29.6 MCHC 34.2 RDW 13.6 Plt Count 104 L Neut % (Auto) 63.8 Lymph % (Auto) 23.1 L [place] % (Auto) 12.6 Eos % (Auto) 0.1 L Baso % (Auto) 0.4 Neut # (Auto) 2500 Lymph # (Auto) 900 L [place] # (Auto) 500 Eos # (Auto) 0 Baso # (Auto) 0 Platelet Estimate Decreased on smear Plt Morphology Comment 1+ large platelets RBC Morphology Normal morphology D-Dimer 269 H Sodium Potassium Chloride Carbon Dioxide BUN Creatinine Estimated GFR BUN/Creatinine Ratio Glucose Lactate Calcium Ferritin Total Bilirubin AST ALT Alkaline Phosphatase Lactate Dehydrogenase Total Creatine Kinase CK-MB (CK-2) CK-MB (CK-2) Rel Index Troponin I C-Reactive Protein NT-Pro-B Natriuret Pep Total Protein Albumin Globulin Albumin/Globulin Ratio Procalcitonin < 0.05 Nasal Screen MRSA (PCR) Chlamy pneumoniae PCR Adenovirus (PCR) B.parapertussis DNA PCR Coronavirus OC43 (PCR) Coronavirus HKU1 (PCR) Coronavirus 229E (PCR) Coronavirus NL63 (PCR) Human Metapneumovir PCR Influenza Type A (PCR) Influenza Type B (PCR) M. pneumoniae (PCR) Parainfluenza 1 (PCR) Parainfluenza 2 (PCR) Parainfluenza 3 (PCR) Parainfluenza 4 (PCR) RSV (PCR) Entero/Rhino (PCR) 03/28/20 03/28/20 03/28/20 16:25 16:25 19:42 WBC RBC Hgb Hct MCV MCH MCHC RDW Plt Count Neut % (Auto) Lymph % (Auto) [place] % (Auto) Eos % (Auto) Baso % (Auto) Neut # (Auto) Lymph # (Auto) [place] # (Auto) Eos # (Auto) Baso # (Auto) Platelet Estimate Plt Morphology Comment RBC Morphology D-Dimer Sodium 133 L Potassium 4.5 Chloride 102 Carbon Dioxide 21 L BUN 20 Creatinine 1.03 Estimated GFR > 60.0 BUN/Creatinine Ratio 19.4 Glucose 142 H Lactate 1.3 Calcium 8.8 Ferritin 469 H Total Bilirubin 0.7 AST 36 ALT 36 Alkaline Phosphatase 86 Lactate Dehydrogenase 618 Total Creatine Kinase 69 CK-MB (CK-2) TNP CK-MB (CK-2) Rel Index TNP Troponin I < 0.012 C-Reactive Protein 3.2 H NT-Pro-B Natriuret Pep 21 Total Protein 7.5 Albumin 4.3 Globulin 3.2 Albumin/Globulin Ratio 1.3 Procalcitonin Nasal Screen MRSA (PCR) Chlamy pneumoniae PCR Not detected Adenovirus (PCR) Not detected B.parapertussis DNA PCR Not detected Coronavirus OC43 (PCR) Not detected Coronavirus HKU1 (PCR) Not detected Coronavirus 229E (PCR) Not detected Coronavirus NL63 (PCR) Not detected Human Metapneumovir PCR Not detected Influenza Type A (PCR) Not detected Influenza Type B (PCR) Not detected M. pneumoniae (PCR) Not detected Parainfluenza 1 (PCR) Not detected Parainfluenza 2 (PCR) Not detected Parainfluenza 3 (PCR) Not detected Parainfluenza 4 (PCR) Not detected RSV (PCR) Not detected Entero/Rhino (PCR) Not detected 03/28/20 03/29/20 03/29/20 20:37 04:30 04:30 WBC 2.0 L RBC 5.51 Hgb 16.0 Hct 48.1 MCV 87.2 MCH 29.0 MCHC 33.2 RDW 13.5 Plt Count 98 L Neut % (Auto) 58.5 Lymph % (Auto) 30.7 [place] % (Auto) 10.5 Eos % (Auto) 0.0 L Baso % (Auto) 0.3 Neut # (Auto) 1200 L Lymph # (Auto) 600 L [place] # (Auto) 200 Eos # (Auto) 0 Baso # (Auto) 0 Platelet Estimate Plt Morphology Comment RBC Morphology D-Dimer Sodium 137 Potassium 5.0 Chloride 104 Carbon Dioxide 27 BUN 20 Creatinine 0.97 Estimated GFR > 60.0 BUN/Creatinine Ratio 20.6 Glucose 190 H Lactate Calcium 9.0 Ferritin Total Bilirubin AST ALT Alkaline Phosphatase Lactate Dehydrogenase Total Creatine Kinase CK-MB (CK-2) CK-MB (CK-2) Rel Index Troponin I C-Reactive Protein NT-Pro-B Natriuret Pep Total Protein Albumin Globulin Albumin/Globulin Ratio Procalcitonin Nasal Screen MRSA (PCR) Negative for mrsa Chlamy pneumoniae PCR Adenovirus (PCR) B.parapertussis DNA PCR Coronavirus OC43 (PCR) Coronavirus HKU1 (PCR) Coronavirus 229E (PCR) Coronavirus NL63 (PCR) Human Metapneumovir PCR Influenza Type A (PCR) Influenza Type B (PCR) M. pneumoniae (PCR) Parainfluenza 1 (PCR) Parainfluenza 2 (PCR) Parainfluenza 3 (PCR) Parainfluenza 4 (PCR) RSV (PCR) Entero/Rhino (PCR) Assessment & Plan Assessment & Plan narrative: Angel Banerjee is a 54-year-old male former smoker with a past medical history significant for hypertension, hyperlipidemia, BPH and migraine headaches requiring Botox for prevention who presented with worsening shortness of breath in the setting of a known positive COVID swab. 1. Acute COVID - 19 viral pneumonia, present on admission. Active. -Patient presented tachypneic RR 30's, tachycardic 130's, with mild hypoxemic SpO2 91 % on room air. Patient was diagnosed with COVID-19 10 days ago and has been at home in self quarantine. -Chest x-ray demonstrated bilateral patchy interstitial type infiltrates consistent with the given clinical history of COVID 19 pneumonia. -Initial WBC 3.9 and platelets 104. -Receieved Remdesivir 200 mg IV x 1 and will continue 100 mg IV daily x 4 days or until discharge. Received dexamethasone 6 mg in ED and will continue 6 mg daily x 10 days or until discharge. -Consulted respiratory therapy for evaluation and treatment. Continue supplemental oxygen to maintain oxygen saturation > 92%. Patient was placed on oxygen by ED provider due to work of breathing/hyperventilation. He does not technically qualify under NIH guidelines for hyoxemic respiratory failure due to presenting room air saturation of 91%. -He feels much better with supplemental oxygen and glucocorticoid effect. 2. Hyperglycemia without diagnosis of diabetes, present on admission. Active. -Ordered hemoglobin A1C, pending. -Initial blood Glucose of 142 on admission. Patient now on Dexamethasone so likely to exacerbate hyperglycemia. -Ordered ACHS blood glucose and low dose correctional scale insulin. 3. Hypertension, chronic, present on admission. Stable. -Continue lisinopril 10 mg daily and metoprolol tartrate 25 mg daily. 4. Hyperlipidemia, chronic, present on admission. Stable. -Continue atorvastatin 20 mg daily. 5. BPH, chronic, present on admission. Stable. -Continue tamsulosin 0.4 mg daily at bedtime. Code status: Full code VTE prophylaxis: Enoxaparin, SCDs Disposition: Patient likely to discharge in 1-2 days if he remains stable.
[2020-03-29 12:00] VITALS: BP 152/101; PULSE 99; RESP 20; TEMP 37; O2SAT 96
[2020-03-29] MEDS: ENOXAPARIN 40 MG/0.4 ML SYRINGE SUBCUT (13:59)
--- NOTE | 2020-03-29 14:54 | PC.NURSE ---
Day Shift Note Independent in room. Reports shortness of breath improved today although still present. Slight coarseness bilaterally. SpO2 95-96% RA. Dry cough noted. Call light within reach, using appropriately to make needs known.
[2020-03-29 16:21] LABS: Hemoglobin A1C% w Est Avg Glu 6.8 % (4.0-6.0)
[2020-03-29 18:32] VITALS: PULSE 103; O2SAT 94
[2020-03-30] VITALS: BP 143/95; PULSE 91; RESP 22; TEMP 37; O2SAT 93
[2020-03-30 00:44] VITALS: BP 143/95; PULSE 90
[2020-03-30] MEDS: METOPROLOL ER 25 MG TABLET PO (00:44)
[2020-03-30 00:45] VITALS: BP 143/95; PULSE 90
[2020-03-30] MEDS: lisinopriL 10 MG TABLET PO (00:45)
[2020-03-30 01:16] VITALS: PULSE 89
--- NOTE | 2020-03-30 01:34 | PC.NURSE ---
PT DENIES PAIN, IS SOMEWHAT HTN AT 143/95- RESTARTED METOPROLOL AND LISINOPRIL PO THIS PM AND WILL RESUME USUAL DOSE IN AM PER MD ORDERS- DURING BEDTIME HE BEGAN TO DESAT TO 88-91% PT REQUESTED TO WEAR O2 DURING SLEEP - PLACED ON 2L NC WITH SPO2 NOW 94-99%
[2020-03-30 04:49] LABS: Add Manual Diff / Slide Review NO; Basophils Absolute Auto 0 /uL (0-100); Basophils Percent Auto 0.2 % (0-2); Eosinophils Absolute Auto 0 /uL (0-450); Hematocrit 46.9 % (41-53); Hemoglobin 15.8 g/dL (13.5-17.5); Lymphocytes Absolute Auto 800 /uL (1100-4500); Lymphocytes Percent Auto 22.5 % (25-40); Mean Corpuscular HGB Conc 33.6 % (30-36); Mean Corpuscular Hemoglobin 29.2 PG (26-34); Monocytes Absolute Auto 500 /uL (0-900); Monocytes Percent Auto 12.9 % (3-14); Neutrophils Absolute Auto 2400 /uL (1500-7000); Neutrophils Percent Auto 64.4 % (50-75); Platelet Count 116 X10^3/uL (150-400); Red Blood Cell Count 5.39 X10^6/uL (4.5-5.9); Red Cell Distribution Width 13.5 % (11.6-14.8); White Blood Cell Count 3.7 X10^3/uL (4.5-11.0)
[2020-03-30 04:56] LABS: Alanine Aminotransferase 26 IU/L (<50); Albumin 3.8 g/dL (3.5-5.0); Albumin Globulin Ratio 1.4 (1.0-2.8); Alkaline Phosphatase 61 U/L (38-126); Aspartate Aminotransferase 24 IU/L (17-59); BUN Creatinine Ratio 22.8 (6-22); Bilirubin Total 0.4 mg/dL (0.2-1.3); Blood Urea Nitrogen 21 mg/dL (9-20); Carbon Dioxide 29 mmol/L (22-32); Chloride 104 mmol/L (98-107); Estimated Glomerular Filt Rate > 60.0 mL/min (>60); Globulin 2.8 g/dL (1.7-4.1); Glucose 165 mg/dL (70-100); HEMOLYSIS 18 (0-50); Magnesium 1.9 mg/dL (1.6-2.3); Potassium 4.7 mmol/L (3.4-5.1); Sodium 137 mmol/L (137-145); Total Protein 6.6 g/dL (6.3-8.2)
[2020-03-30 05:10] LABS: Procalcitonin < 0.05 ng/mL (<0.5)
[2020-03-30 08:00] VITALS: BP 109/60; PULSE 87; RESP 20; TEMP 37.1; O2SAT 96
[2020-03-30] MEDS: dexAMETHasone 1 MG TABLET 6 MG PO (09:25)
[2020-03-30] MEDS: REMDESIVIR 100 MG in SODIUM CHLORIDE 0.9% 230 ML 250 ML IV (09:25)
[2020-03-30] MEDS: ENOXAPARIN 40 MG/0.4 ML SYRINGE SUBCUT (09:26)
[2020-03-30] MEDS: ATORVASTATIN 20 MG TABLET PO (09:26)
--- NOTE | 2020-03-30 10:18 | P.DS_ITS ---
History of Present Illness History of Present Illness Chief complaint: states Covid +, not getting better Narrative: This is a 54-year-old male who was diagnosed with a COVID respiratory infection 10 days ago. His test was done in [place], he lives in [place], but is currently staying in an RV at the [facility], quarantining with his . He suspects that his son was the 1st person in the family to get the COVID. Over the last 24 hours he has become increasingly short of breath and when he presented to the emergency department he was 91% on room air. With application of 2 L nasal cannula he felt much better with his tachypnea dropping from the 30s into the 20s and his O2 sat rising into the mid 90s to high 90s. He has received an initial dose of remdesivir and dexamethasone in the emergency department, with further doses depending on his progress. During my visit he is coughing intermittently. He is not febrile. His chest x-ray shows the classic bilateral patchy interstitial type infiltrates of coronavirus. His white blood count is 3.9 with a hemoglobin of 17.6, LDH of 618, COPD a 33.2, D-dimer 269, platelets of 104, glucose 142 and ferritin of 469. Discharge Providers Provider Date of admission: 03/28/20 18:54 Discharge Date: 03/30/20 Consults: 03/28/20 20:45 Consult to Respiratory Therapy Evaluate & Treat Comment: Physician Instructions: Evaluate and treat Discharge provider: Red Alvarez MD Summary Hospital Course Discharge Diagnosis: 1. COVID-19 pneumonia 2. Type 2 diabetes 3. Hypertension Hospital Course: Patient presented in significant respiratory distress with tachypnea but maintaining O2 sats. Chest x-ray with diffuse infiltrates consistent with COVID-19 pneumonia. He was started on remdesivir and dexamethasone. He required supplemental O2 2 L intermittently when room air sats dropped to 88%. Currently his O2 sat is 95% on room air. He is not ta chypneic and is not having any dyspnea. Due to rapid improvement, we elected to discontinue remdesivir and dexamethasone after 3 days of treatment. He will safe isolated at home until symptoms are fully resolved. His admit blood sugar was 190. His A1c is 6.8% consistent with type 2 diabetes. Patient has been followed for pre diabetes. He is advise as to follow-up with PCP and long-term management with diet and weight loss. Status at Discharge Cognitive/behavioral status at discharge: oriented Functional status at discharge: independent ambulation Overall status at discharge: patient is progressing back to baseline Time Spent with Patient Time spent: Greater than 30 minutes Exam Vital Signs (past 8 hours): - 03/30/20 08:00 Temperature 98.8 F Pulse Rate 87 Respiratory Rate 20 Blood Pressure 109/60 Pulse Oximetry 96 Oxygen Delivery Method Room Air Oxygen Flow Rate 2 Objective Labs Result Diagrams: 03/30/20 04:35 03/30/20 04:35 Labs: Laboratory Results - last 24 hr 03/29/20 03/30/20 03/30/20 04:30 04:35 04:35 WBC 3.7 L D RBC 5.39 Hgb 15.8 Hct 46.9 MCV 87.0 MCH 29.2 MCHC 33.6 RDW 13.5 Plt Count 116 L Neut % (Auto) 64.4 Lymph % (Auto) 22.5 L [place] % (Auto) 12.9 Eos % (Auto) 0.0 L Baso % (Auto) 0.2 Neut # (Auto) 2400 Lymph # (Auto) 800 L [place] # (Auto) 500 Eos # (Auto) 0 Baso # (Auto) 0 Sodium Potassium Chloride Carbon Dioxide BUN Creatinine Estimated GFR BUN/Creatinine Ratio Glucose Hemoglobin A1c 6.8 H Calcium Magnesium Total Bilirubin AST ALT Alkaline Phosphatase Total Protein Albumin Globulin Albumin/Globulin Ratio Procalcitonin < 0.05 03/30/20 04:35 WBC RBC Hgb Hct MCV MCH MCHC RDW Plt Count Neut % (Auto) Lymph % (Auto) [place] % (Auto) Eos % (Auto) Baso % (Auto) Neut # (Auto) Lymph # (Auto) [place] # (Auto) Eos # (Auto) Baso # (Auto) Sodium 137 Potassium 4.7 Chloride 104 Carbon Dioxide 29 BUN 21 H Creatinine 0.92 Estimated GFR > 60.0 BUN/Creatinine Ratio 22.8 H Glucose 165 H Hemoglobin A1c Calcium 9.0 Magnesium 1.9 Total Bilirubin 0.4 AST 24 ALT 26 Alkaline Phosphatase 61 Total Protein 6.6 Albumin 3.8 Globulin 2.8 Albumin/Globulin Ratio 1.4 Procalcitonin Discharge Plan Discharge Plan Patient Disposition: Home Discharge orders & Medications Prescriptions: Continued rizatriptan 10 mg tablet 10 mg PO PRN PRN (Reason: Migraine Headache) RF: 0 tamsulosin [Flomax] 0.4 mg Capsule 0.4 mg PO BEDTIME RF: 0 lisinopril 10 mg Tablet 10 mg PO DAILY RF: 0 metoprolol tartrate 25 mg Tablet 25 mg PO DAILY RF: 0 atorvastatin [Lipitor] 10 mg Tablet 20 mg PO DAILY RF: 0
== END 2020-03-30 13:00 | disposition home or self-care (01) | DRG 177 ==
LOC: ED 18:54 → AC 18:56 → ICU 03-29 09:12
PROVIDERS: Family Medicine; Admitting Provider Internal Medicine; Emergency Provider Emergency Medicine; Referring Provider Emergency Medicine; Visit Provider Internal Medicine
DX: U07.1 COVID-19 (principal); J12.89 Other viral pneumonia; R09.02 Hypoxemia; I10 Essential (primary) hypertension; E78.5 Hyperlipidemia, unspecified; R73.03 Prediabetes; N40.0 Benign prostatic hyperplasia without lower urinary tract symptoms; Z87.891 Personal history of nicotine dependence
CPT/HCPCS: 36415; 71045; 80048; 80053; 82550; 82728; 82962; 83036; 83605; 83615; 83735; 83880; 84145; 84484; 85025; 85379; 86140; 87040; 87633; 87797; 93005; 93010; 96361; 96365; 96372; 96375; 99284; 99291; 99292; J1100; J1650